=== PATIENT | male | born 1945 | race Caucasian/White ===

== ENCOUNTER → 2017-08-12 | Outpatient (CLI) | payer MEDICARE, OTHER ==
[~2017-08-12] MED LIST: ASPI-650 PO; IBUP-1221 PO; MAGN400T7 PO; MULT1CAP19 PO; THIA100T27 PO; VITA10004 PO
== END | disposition home or self-care (01) ==
LOC: STAR 11:39
PROVIDERS: ATTEND Surgery
DX: Z01.818 Encounter for other preprocedural examination (principal); R94.31 Abnormal electrocardiogram [ECG] [EKG]
CPT/HCPCS: 93005

== ENCOUNTER 2017-08-16 05:52 | Day surgery (SDC) | payer MEDICARE, OTHER ==
[~2017-08-16] VITALS: Ht 177.8 cm; Wt 77.0 kg
[2017-08-16] MEDS ORDERED: LACTATED RINGERS 1,000 ML IV SCH (06:06)
[2017-08-16] MEDS ORDERED: EPINEPHRINE 1 MG/ML, 1ML ONE (06:33)
[2017-08-16] MEDS ORDERED: BUPIVACAINE/PF 0.5% ONE (06:33)
[2017-08-16] MEDS ORDERED: MIDAZOLAM 1 MG/ML, 2ML ONE (06:51)
[2017-08-16] MEDS ORDERED: FENTANYL PF 250 MCG/5ML ONE (06:51)
[2017-08-16] MEDS ORDERED: ACETAMINOPHEN 325 MG TABLET PO PRN (07:00)
[2017-08-16] MEDS ORDERED: FENTANYL PF 100 MCG/2ML IV PRN (07:00)
[2017-08-16] MEDS ORDERED: HYDROmorphone 1 MG/ML, 1ML IV PRN (07:00)
[2017-08-16] MEDS ORDERED: OXYcodone 5 MG/5 ML ORAL.SOL UDC PO PRN (07:00)
[2017-08-16] MEDS ORDERED: LABETALOL 5MG/ML, 20ML IV PRN (07:00)
[2017-08-16] MEDS ORDERED: METOCLOPRAMIDE 5 MG/ML, 2ML IV PRN (07:00)
[2017-08-16] MEDS ORDERED: ONDANSETRON 2MG/ML, 2ML IVPush PRN (07:00)
[2017-08-16] MEDS ORDERED: hydrALAzine 20 MG/ML, 1ML IV PRN (07:00)
[2017-08-16] MEDS ORDERED: ROCURONIUM 10MG/ML,5ML ONE (07:24)
[2017-08-16] MEDS ORDERED: CEFAZOLIN 1,000 MG ONE (07:24)
[2017-08-16] MEDS ORDERED: ONDANSETRON 2MG/ML, 2ML ONE (07:24)
[2017-08-16] MEDS ORDERED: METOCLOPRAMIDE 5 MG/ML, 2ML ONE (07:24)
[2017-08-16] MEDS ORDERED: SUCCINYLCHOLINE 20 MG/ML, 10ML ONE (07:24)
[2017-08-16] MEDS ORDERED: PROPOFOL 10 MG/ML, 20ML ONE (07:24)
== END 2017-08-16 10:20 | disposition home or self-care (01) ==
LOC: OUT 05:52
PROVIDERS: ATTEND Surgery
DX: K40.30 Unilateral inguinal hernia, with obstruction, without gangrene, not specified as recurrent (principal); F17.210 Nicotine dependence, cigarettes, uncomplicated; Z86.73 Personal history of transient ischemic attack (TIA), and cerebral infarction without residual deficits; Z72.89 Other problems related to lifestyle
CPT/HCPCS: 49507; J0171; J0330; J0690; J2250; J2405; J2704; J2765; J3010; J3490; J7120; C1781